=== PATIENT | male | born 1955 | race Caucasian/White ===

== ENCOUNTER 2022-05-20 17:13 | Emergency (ER) | payer OTHER ==
[~2022-05-20] VITALS: Ht 175.3 cm; Wt 59.0 kg
[2022-05-20 17:18] VITALS: BP 114/76
--- NOTE | 2022-05-20 17:30 | NUR ---
FROM [facility] [address] [facility] [id number]
[2022-05-20] MEDS ORDERED: ESCI10TA PO (17:46)
[2022-05-20] MEDS ORDERED: LORA-259 PO (17:46)
[2022-05-20] MEDS ORDERED: MIRT-90 PO (17:46)
[2022-05-20] MEDS ORDERED: QUET25TA PO (17:46)
[2022-05-20] MEDS ORDERED: RISP0.2515 PO (17:46)
[2022-05-20] MEDS ORDERED: NALO4SPR (17:46)
[2022-05-20] MEDS ORDERED: ACET-868 PO (17:46)
[2022-05-20] MEDS ORDERED: TEMA15CA PO (17:46)
[2022-05-20] MEDS ORDERED: ACET-2605 PO (17:46)
--- NOTE | 2022-05-20 19:07 | NUR ---
CALLED [facility] FOR TRANSPORT - ETA 60-90 MINS PER KEELEY
--- NOTE | 2022-05-20 20:00 | NUR ---
TANSFERRED BACK TO THE FACILITY BY [facility] IN STABLE CONDITION
== END 2022-05-20 20:00 ==
LOC: ER 17:13
DX: H92.01 Otalgia, right ear (principal); F32.A Depression, unspecified; Z79.899 Other long term (current) drug therapy
CPT/HCPCS: 70450-TC

== ENCOUNTER 2023-02-24 13:41 | Emergency (ER) | payer MEDICARE, OTHER ==
[~2023-02-24] VITALS: Ht 170.2 cm; Wt 78.0 kg
[~2023-02-24 13:41] MED LIST: ACET-2605 PO; ACET-868 PO; ESCI10TA PO; LORA-259 PO; MIRT-90 PO; NALO4SPR; QUET25TA PO; RISP0.2515 PO; TEMA15CA PO
[2023-02-24 19:31] VITALS: BP 112/60; TEMP 98.7; O2SAT 99
== END 2023-02-24 19:32 ==
LOC: ER 13:45
DX: Z00.00 Encounter for general adult medical examination without abnormal findings (principal); F20.9 Schizophrenia, unspecified; F32.A Depression, unspecified

== ENCOUNTER 2023-02-28 13:26 | Emergency (ER) | payer MEDICARE, OTHER ==
[~2023-02-28] VITALS: Ht 170.2 cm; Wt 77.1 kg
[2023-02-28 13:56] VITALS: BP 106/61; TEMP 97.1; O2SAT 97
== END 2023-02-28 13:57 | disposition home or self-care (01) ==
LOC: ER 13:55
DX: Z00.00 Encounter for general adult medical examination without abnormal findings (principal); F20.9 Schizophrenia, unspecified; F32.A Depression, unspecified; W18.30XA Fall on same level, unspecified, initial encounter; Y93.89 Activity, other specified; Y92.89 Other specified places as the place of occurrence of the external cause; Y99.8 Other external cause status